=== PATIENT | female | born 1995 | race Caucasian/White ===

== ENCOUNTER 2016-06-03 16:17 | Emergency (ER) | payer OTHER ==
[~2016-06-03] VITALS: Wt 90.8 kg
[~2016-06-03 16:17] MED LIST: IBUP-1542 PO
[2016-06-03] MEDS ORDERED: ONDANSETRON (ODT) 4 MG TAB ODT STA (16:33)
--- NOTE | 2016-06-03 16:36 | ERD ---
ER Documentation Chief Complaint Date/Time DATE: 06/03/16 TIME: 16:34 Chief Complaint NAUSEA AND VOMITING FOR THE PAST 24 HOURS. NO FEVERS HPI This is a 21-year-old female presenting to the emergency room complaining of generalized abdominal pain, nausea, vomiting, diarrhea since last night. Patient denies any fevers. She denies any dysuria. Patient states that her last menstrual period was month ago and was normal. She denies any hematemesis or hematochezia. Patient has not taken any medication for this peer ROS All systems reviewed and are negative except as per history of present illness. Medications Home Meds Active Scripts Ibuprofen* (Ibuprofen*) 600 Mg Tab, 600 MG PO Q6, #20 0 Refills Prov:DEJA BENDER MD 01/15/15 Allergies Allergies: Coded Allergies: No Known Drug Allergies (Verified Allergy, Mild, 04/07/10) PMhx/Soc History of Surgery: Yes (L FEMORALHERNIA) Hx Neurological Disorder: No Hx Respiratory Disorders: Yes (ASTHMA) Hx Cardiac Disorders: No Hx Psychiatric Problems: Yes (Per chart, suicide attempt in 03/2010, pt stated she cut 6 yrs ago) Hx Miscellaneous Medical Probl: No Hx Alcohol Use: No Hx Substance Use: Yes Hx Tobacco Use: No Physical Exam Vitals Vital Signs Date Time Temp Pulse Resp B/P Pulse Ox O2 Delivery O2 Flow Rate FiO2 06/03/16 16:18 98.9 100 20 139/65 100 Physical Exam GENERAL: well-developed/well-nourished, in no apparent distress, non-toxic appearing HENT: NC/AT, moist mucous membranes EYES: Conjunctiva normal NECK: Supple, no lymphadenopathy PULM: CTA bilaterally, no rales, rhonchi, or wheezing heard CV: Normal S1S2, RRR, good capillary refill GI: Soft, non-distended, tender to palpation in all quadrants Normal bowel sounds, no masses or organomegaly felt on exam No gross peritonitis, no bruits Negative Rovsing, negative Hollis, negative McBurney's point, Negative CVAT BACK: No masses EXT: No clubbing, cyanosis, or edema NEURO: Alert and Orientated SKIN: Intact, normal turgor PSYCH: Normal mood and mentation Procedures/MDM 21-year-old female patient with vomiting and diarrhea, due to viral gastroenteritis vs food poisoning. Low suspicion for pseudomembranous colitis, diverticulitis, appendicitis, cholecystitis, pancreatitis, or other abdominal emergencies or acute cardiopulmonary conditions due to physical examination and diagnostic testing. Patient has stable vital signs, she appears well speaking clearly does not seem to be in any distress. Patient was given Zofran, [place] and passed PO challenge. Urine dipstick was done and Urine test is negative Patient is hemodynamically stable for discharge. Prescription Zofran was given. Discussed to increase fluids. Discussed to return to the ED if not improving as expected or for any worsening conditions. Patient understood and agreed with this plan. Departure Diagnosis: Primary Impression: Vomiting and diarrhea Condition: Stable JENNIFER MALAGON PA-C Jun 03, 2016 16:36
[2016-06-03] MEDS ORDERED: ONDA4TAB14 PO (16:37)
[2016-06-03] MEDS ORDERED: ACET325T33 PO (16:37)
[2016-06-03 16:54] LABS: URINE BLOOD (Dip) POC Negative (NEGATIVE)
[2016-06-03] MEDS ORDERED: HYDROCODONE/APAP (5/325) TAB PO ONE (17:00)
== END 2016-06-03 17:05 | disposition home or self-care (01) ==
LOC: FTE 16:17
DX: R11.10 Vomiting, unspecified (principal); R19.7 Diarrhea, unspecified; J45.909 Unspecified asthma, uncomplicated
CPT/HCPCS: 81003; Z7502; Z7610; 99283

== ENCOUNTER 2017-06-04 19:12 | Emergency (ER) | END 2017-06-04 21:30 | disposition home or self-care (01) ==

== ENCOUNTER 2017-08-03 22:45 | Emergency (ER) | END 2017-08-04 01:45 | disposition home or self-care (01) ==

== ENCOUNTER 2018-11-01 20:15 | Emergency (ER) | payer OTHER ==
[~2018-11-01] VITALS: Ht 167.6 cm; Wt 65.0 kg
[~2018-11-01 20:15] MED LIST changes: +ACET325T33 PO; +CYCL10TA7 PO; +HYDR-4011 PO; +METO10TA92 PO; +ONDA4TAB14 PO
[2018-11-01 20:17] VITALS: BP 126/79; PULSE 98; RESP 16; Ht 167.6 cm; Wt 65.0 kg
== END 2018-11-01 23:01 | disposition home or self-care (01) ==
LOC: FTE 20:15
DX: O41.8X10 Other specified disorders of amniotic fluid and membranes, first trimester, not applicable or unspecified (principal); O10.011 Pre-existing essential hypertension complicating pregnancy, first trimester; O99.511 Diseases of the respiratory system complicating pregnancy, first trimester; J45.909 Unspecified asthma, uncomplicated; O46.8X1 Other antepartum hemorrhage, first trimester; R10.9 Unspecified abdominal pain; R10.2 Pelvic and perineal pain; Z3A.10 10 weeks gestation of pregnancy
CPT/HCPCS: 36415; 76801; 81003; 84702; 85025; 86900; 86901; 87086; Z7502; Z7610